=== PATIENT | male | born 1965 | race Caucasian/White ===

== ENCOUNTER 2021-03-16 16:27 | Emergency (ER) | payer BC ==
[~2021-03-16] VITALS: Ht 175.3 cm; Wt 104.0 kg
[2021-03-16] MEDS ORDERED: BACTRIM DS1 TAB PO ×2 (17:00→17:48)
[2021-03-16] MEDS ORDERED: CEPHALEXIN500 MG PO ×2 (17:00→17:48)
[2021-03-16 17:45] VITALS: BP 136/87
== END 2021-03-16 17:45 | disposition home or self-care (01) | DRG 999 ==
LOC: ED 16:27
DX: L03.113 Cellulitis of right upper limb (principal); S42.451A Displaced fracture of lateral condyle of right humerus, initial encounter for closed fracture; I10 Essential (primary) hypertension; V48.3XXA Unspecified car occupant injured in noncollision transport accident in nontraffic accident, initial encounter